=== PATIENT | male | born 1965 | race Caucasian/White ===

== ENCOUNTER 2024-06-16 10:19 | Emergency (ER) | payer OTHER, SELFPAY ==
--- NOTE | 2024-06-16 10:28 | ED_ITS ---
HPI - Wound/Laceration General Chief Complaint: Skin/Abscess/Foreign Body Stated Complaint: LACERATION TO LIP Time Seen by Provider: 06/16/24 10:36 Source: patient, RN notes reviewed and old records reviewed Mode of arrival: ambulatory Limitations: no limitations History of Present Illness HPI narrative: 59 year old male who presents to [facility] care with complaints of laceration to his lower lip which occurred at around 1000 this morning when he was using a battery powered drill over head and the battery came out of the drill and hit his bottom lip causing Y type of laceration on the left lower lip. Some active bleeding noted. Patient reports that his tetanus is not up to date. Patient reports that it also chipped the bottom of his #9 tooth and has already called his dentist for follow up. Onset (ago): hour(s) (at 1000 today) Location: face (lower lip) Place: work Patient tetanus UTD: No Treatments prior to arrival: other (rolled clean rag to lip) Related Data Home Medications ?Medication ?Instructions ?Recorded ?Confirmed ?Last Taken ?Type fenofibrate nanocrystallized 145 mg PO 06/16/24 Unknown History mg tablet lisinopril 40 mg tablet mg 06/16/24 Unknown History metoprolol succinate 50 mg mg PO 06/16/24 Unknown History tablet,extended release 24 hr simvastatin 40 mg tablet mg 06/16/24 Unknown History Allergies Allergy/AdvReac Type Severity Reaction Status Date / Time iodine Allergy Unknown Unknown Verified 06/16/24 10:36 Penicillins Allergy Unknown Unknown Verified 06/16/24 10:36 Review of Systems Review of Systems: CONSTITUTIONAL: Denies fever, chills, or sweats. CARDIOVASCULAR: Denies chest pain, palpitations, or edema. RESPIRATORY: Denies cough or dyspnea. SKIN: Reports laceration to the left bottom lip Y shaped with bleeding controlled has chipped #9 tooth on the bottom edge of tooth MUSCULOSKELETAL: Denies musculoskeletal pain NEUROLOGIC: Denies numbness, or weakness. All systems reviewed & are unremarkable except as noted in HPI and below PMFSH Past Medical History Medical History (Updated 06/17/24 @ 09:18 by Mady Rios NP) Hyperlipidemia Hypertension Surgical History Surgical History (Updated 06/17/24 @ 09:06 by Mady Rios NP) History of epidermal inclusion cyst excision back Family History Family History (Updated 01/03/14 @ 08:43 by DOCTOR UNKNOWN) Other Family history of allergic disorder Hypertension Social History Social History (Updated 06/17/24 @ 09:05 by Mady Rios NP) Smoking status: Never smoker Alcohol intake: current Living arrangements: with family Gender identity (if verbalized by the patient): Male Comments At time of signature, agree with nursing past medical, surgical, social and family history. There is no relevant family history pertinent to the presenting complaint Exam Narrative: GENERAL: Well-appearing, well-nourished, and in no acute distress. HEAD: Normocephalic, atraumatic. NECK: Supple.no lymphadenopathy CHEST: Clear to auscultation. No respiratory distress. SAO2 98% on room air HEART: Regular rate and rhythm. No murmur heard. Normal peripheral pulses. EXTREMITIES: Normal range of motion. No edema. SKIN: Warm, dry, no rash. Reports laceration to left lower lip area in Y formation with bleeding controlled did chip bottom of #9 tooth when accident occurred.Some swelling of lower lip laceration area noted, see procedure noted NEURO: No focal deficits. Alert and oriented x3. Course Course Level of Care: Express Care Visit Vital Signs Vital signs: Vital Signs Temperature 36.4 C 06/16/24 10:30 Pulse Rate 92 06/16/24 10:30 Respiratory Rate 20 06/16/24 10:30 Blood Pressure 166/90 H 06/16/24 10:30 Pulse Oximetry 98 06/16/24 10:30 Oxygen Delivery Room Air 06/16/24 10:30 Temperature 36.4 C 06/16/24 10:30 Pulse Rate 92 06/16/24 10:30 Respiratory Rate 20 06/16/24 10:30 Blood Pressure 166/90 H 06/16/24 10:30 Pulse Oximetry 98 06/16/24 10:30 Oxygen Delivery Room Air 06/16/24 10:30 reviewed Procedures Laceration Bottom lip: Date: 06/16/24 Time: 10:50 Site: lip (The bottom lip) Side (If applicable): left Size (cm): 1.2 Description: irregular Depth: simple, single layer Local Anesthetic: lidocaine 1% Amount of anesthesia used (mL): 3 Pre-repair: irrigated extensively and other (cleansed with wound care solution) ====== Skin Level ====== Skin layer closed with: nylon Size (cm): 6-0 Number of sutures: 5 Technique: simple, interrupted ====== Subcutaneous Layer ====== ====== Muscle Layer ====== ====== Tendon Layer ====== Dressing: area left open to air, small amount of triple antibiotic ointment applied to laceration site, Patient tolerated laceration repair well. MDM - Wound/Laceration MDM Narrative Medical decision making narrative: Wound explored for foreign body and copious irrigation provided with no evidence of FB. Discussed the potential of retained foreign body with the patient and sig ns/symptoms that should prompt the patient to immediately go to the ED for reevaluation. The wound was explored and no foreign bodies were found. There was no evidence of tendon or nerve lacerations. The wound was closed per procedure note. Laceration site left open to air and anticipatory guidance was provided. Tetanus prophylaxis was given with no signs of reaction. Differential Diagnosis Differential diagnosis: Likely laceration, abrasion, avulsion of skin and other (Laceration of the bottom lip, chip of the bottom of #9 tooth) Medical Records Attestation: I reviewed the patient's medical records. Critical Care Time Critical Care Time Critical Care Time: No Discharge Plan Discharge Clinical Impression: Laceration of lower lip Qualifiers: Encounter type: initial encounter Qualified Code(s): S01.511A - Laceration without foreign body of lip, initial encounter Chipped tooth Qualifiers: Encounter type: initial encounter Fracture type: closed Qualified Code(s): S02.5XXA - Fracture of tooth (traumatic), initial encounter for closed fracture Patient Disposition: Home Condition: Stable Instructions: Antibiotic Form, Facial Laceration (ED) Additional Instructions: Keep the area clean and dry No continuous water contact like dishes or swimming You may bathe and wash you hair caution with hair products or lotions Antibiotic ointment to the area 2 times a day bacitracin ointment dressing of choice may leave open to air watch for infection--redness, swelling, drainage follow up with PCP for suture/staple in removal 7 days recheck with PCP if further concerns or problems Cefdinir antibiotic twice daily for 7 days If your symptoms persist, change or worsen significantly before you can contact your personal physician then please, without delay, go to the emergency department for further evaluation. Follow-up with PCP in 7-10 days or sooner if needed Follow up with PCP soon in regards to your blood pressure which is elevated above threshold for referral. Blood pressure above 120/80 may indicate pre- hypertension. 166/90 Follow up with dentist for chip of tooth Patient Language: Setswana Prescriptions: New cefdinir 300 mg capsule 300 mg PO Q12H Qty: 14 0RF No Action metoprolol succinate 50 mg tablet extended release 24 hr PO simvastatin 40 mg tablet lisinopril 40 mg tablet fenofibrate nanocrystallized 145 mg tablet PO Follow-up/Referrals: UNKNOWN,DOCTOR [Primary Care Provider] - Time of Disposition: 11:20 Quality [place] Coma Scale Eyes: Open Verbal: Oriented and Alert Motor: Follows Commands [place] Coma Total Score: 15
[2024-06-16 10:30] VITALS: BP 166/90; PULSE 92; RESP 20; TEMP 36.4; O2SAT 98
--- OUTSIDE RECORDS SUMMARY | 2024-06-16 11:03 | XMS_ITS | Clinical Summary ---
Author Organization [address] lto Address [address] [place] [address] Care Team Providers Care Electorate Officer Name Role Phone David Sanchez MD Primary Care Provider [phone]- [phone] Allergies Active Allergy Reactions Criticality Noted Date Comments Penicillins Swelling Medium Medications allopurinol (ZYLOPRIM) 300 mg tablet TK 1 T PO QD 0 12/24/19 19 Active lisinopril (PRINIVIL,ZESTRIL) 40 mg tablet TK 1 T PO QD 1 12/24/19 19 Active BYSTOLIC 10 mg tablet TK 1 T PO QD 1 12/24/19 19 Active simvastatin (ZOCOR) 20 mg tablet TK ONE T PO QD 3 12/24/19 19 Active indomethacin (INDOCIN) 50 mg capsule Take 50 mg by mouth as needed for pain Active fluticasone propionate (Flonase Allergy Relief) 50 mcg/actuation nasal sprayIndications:Sea deandre allergies Administer 2 sprays into each nostril daily 1 Inhaler 2 02/27/20 19 Active montelukast (Singulair) 10 mg tabletIndications:Se asonal allergies Take 1 tablet (10 mg total) by mouth nightly 60 tablet 02/27/20 19 Active fenofibrate nanocrystallized (TRICOR) 145 mg tablet 07/17/19 22 Active Active Problems Problem Noted Date Diagnosed Date Cough 02/26/2019 Seasonal allergies 02/26/2019 Chills 02/26/2019 Hypertension 07/23/2013 Overview (06/12/2016): Hypertension Surgical History Surgery Date Site/Laterality Comments CYST REMOVAL Cysts removed off of back Medical History Medical History Date Comments Hypertension Hyperlipidemia Gout Family History Medical History Relation Name Comments Heart attack Mother Heart disease Mother Relation Name Status Comments Mother Social History Tobacco Use Types Packs/Day Years Used Date Smoking Tobacco: Never Smokeless Tobacco: Current Alcohol Use Standard Drinks/Week Comments Yes 0 (1 standard drink = 0.6 oz pur e alcohol) Personal Safety Answer Date Recorded Getting School Help Needed Not on file 05/23 Sex and Gender Information Value Date Recorded Sex Assigned at Not on file 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 Gender Identity Not on file Sexual Orientation Not on file Obstetrics History Last Filed Vital Signs Vital Sign Reading Time Taken Comments Blood Pressure 142/90 08/23/2021 8:40 AM CDT Pulse 90 08/23/2021 8:40 AM CDT Temperature 37.6 C (99.6 F) 08/23/2021 8:40 AM CDT Respiratory Rate 20 08/23/2021 8:40 AM CDT Oxygen Saturation 98% 08/23/2021 8:40 AM CDT Inhaled Oxygen Concentration - - Weight 86.1 kg (189 lb 12.8 oz) 08/23/2021 8:40 AM CDT Height 162.6 cm (5' 4 ) 08/23/2021 8:40 AM CDT Body Mass Index 32.58 08/23/2021 8:40 AM CDT Plan of Treatment Health Maintenance Due Date Last Done Comments Colon Cancer Screening-Colonoscopy 1966 Depression Screening 1966 Hepatitis C Screening 1966 Prostate Cancer Screening-PSA 1966 DTaP/Tdap/Td Vaccine (1 - Tdap) 1977 Hepatitis B Screening 1984 Regular Well Visit/Exam 18-64 1984 Zoster Vaccine (1 of 2) 2016 Covid-19 Vaccine (4 - 2023-2 5 season) 2023 06/19/2021, 05/30/2020, 05/08/2020 Influenza Vaccine (Season Ended) 2024 Pneumococcal vaccine <65 Aged Out No longer eligible based on patient's age to complete this topic Insurance [facility] CHOICE PLUS Care Teams Electorate Officer Relationship Specialty Start Date End Date David Sanchez MD PCP - General 02/25/11
--- OUTSIDE RECORDS SUMMARY | 2024-06-16 11:03 | XMS_ITS | Referral Summary ---
Author Organization [address] lto Address [address] [place] [address] Care Team Providers Care Construction Controller Name Role Phone David Sanchez MD Primary Care Provider +1- [phone] Allergies Active Allergy Reactions Criticality Noted Date [...] Chills 02/26/2019 Hypertension 07/23/2013 Overview (06/12/2016): Hypertension Social History Tobacco Use Types Packs/Day Years Used Date Smoking Tobacco: Never Smokeless Tobacco: Current Alcohol Use Standard Drinks/Week Comments Yes 0 (1 standard drink = 0.6 oz pur e alcohol) Personal Safety Answer Date Recorded Getting School Help Needed Not on file 05/23 Sex and Gender Information Value Date Recorded Sex Assigned at Not on file 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
[2024-06-16] MEDS: LIDOCAINE 1% LOCAL INJ 2 ML AMPUL 6 ML INFILTRATE (11:15)
[2024-06-16] MEDS: TETANUS,DIPHTHERIA,AC PERTUSSIS ADULT (0.5 ML) BOOSTRIX IM (11:25)
== END 2024-06-16 11:38 | disposition home or self-care (01) ==
PROVIDERS: Emergency Provider Registered Nurse
DX: S01.511A Laceration without foreign body of lip, initial encounter (principal); S02.5XXA Fracture of tooth (traumatic), initial encounter for closed fracture; W20.8XXA Other cause of strike by thrown, projected or falling object, initial encounter; Z23 Encounter for immunization; I10 Essential (primary) hypertension; E78.5 Hyperlipidemia, unspecified
CPT/HCPCS: 12011; 90471; 90715; 99213; G0463; J2003